=== PATIENT | male | born 1930 | race Caucasian/White ===

== ENCOUNTER → 2016-02-26 | Outpatient (CLI) | payer OTHER, BC ==
[~2016-02-26] MED LIST: IOPAMIDOL (ISOVUE 370) 100 ML BTL IV ONE
--- NOTE | 2016-03-03 17:18 | CT ---
CT Angiography of the Abdomen and Pelvis Clinical Indications: Continued evaluation of endoleak. Status post stent-graft placement for abdomin al aortic aneurysm in November 2014. Known type II endoleak. Comparison: June 25, 2015, December 29, 2014. Technique: Thinly collimated multidetector helical data were obtained through the abdomen and pelvis during the administration of 97 mL of Isovue 370 IV contrast during the arterial phase of contrast e nhancement. Repeat 5 mm images are obtained in venous phase. Images were then transferred to an Pixel[employer] workstation where multiplanar and three-dimensional reconstructions were performed by the rad iologist. Appropriate images were stored on PACS. Dose reduction techniques were utilized. Findings: CT Angiography: Indeed, a type II endoleak is still present, from a large right posterior lumbar ar mely. There may be a second point of entry from another lumbar artery up above. The aneurysm sac at t his point has enlarged, now measuring 5.4 x 5.5 cm compared to the previous 5.5 x 5.1 cm. It has been 1-1/2 years. The LAURA has been occluded and there is no endoleak anteriorly. All the leak is posterio r. The endograft otherwise is excellent in position. No migration. No limb kink. CT Abdomen and Pelvis: The arterial phase evaluation of the solid and visceral organs is normal. No developing mass or adenopathy. Lung bases are clear. Impression: 1. 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 These are posterolaterally located. 2. First time enlarging aneurysm sac size, now at 5.5 x 5.4 cm compared to the original 5.5 x 5.1 cm. Recommendation: CT and fluoroscopy-guided percutaneous endoleak embolization. I will discuss this with the patient at this time and schedule the patient for the above recommended procedures.
== END ==
LOC: FIMAGING 13:46
PROVIDERS: ATTEND Radiology Diagnostic Radiology
DX: Z09 Encounter for follow-up examination after completed treatment for conditions other than malignant neoplasm (principal); I71.4 Abdominal aortic aneurysm, without rupture; T82.9XXA Unspecified complication of cardiac and vascular prosthetic device, implant and graft, initial encounter
CPT/HCPCS: 74174; Q9967

== ENCOUNTER 2016-03-27 07:19 | Day surgery (SDC) | payer OTHER, BC ==
[2016-03-27] MEDS ORDERED: MIDAZOLAM 2 MG/2 ML VIAL ONE (07:31)
[2016-03-27] MEDS ORDERED: PROPOFOL/EMULSION 500 MG/50 ML BOTTLE IV ONE (07:31)
[2016-03-27] MEDS ORDERED: PROPOFOL 200 MG/20 ML VIAL ONE (07:31)
[2016-03-27] MEDS ORDERED: SUCCINYLCHOLINE CHLORIDE 200 MG/10 ML VIAL ONE (07:33)
[2016-03-27] MEDS ORDERED: ROCURONIUM 100 MG/10 ML VIAL ONE (07:34)
[2016-03-27 08:41] LABS: INR 1.15 (0.83-1.16); PROTIME(PATIENT) 14.7 SEC (12.0-15.0)
[2016-03-27 08:42] LABS: APTT 30.3 SEC (23.0-38.0)
[2016-03-27] MEDS ORDERED: NS 1,000 ML IV SCH (08:45)
[2016-03-27] MEDS ORDERED: fentaNYL 100 MCG/2 ML INJ ONE (09:14)
[2016-03-27] MEDS ORDERED: KETAMINE 100 MG/10 ML SYR IVP ONE (12:06)
[2016-03-27] MEDS ORDERED: IOPAMIDOL (ISOVUE-300) 100 ML BTL IV ONE (12:57)
[2016-03-27] MEDS ORDERED: HEPARIN 10,000 UNIT/10 ML MDV ONE (12:57)
[2016-03-27 13:08] LABS: HEMATOCRIT 36.2 % (40.0-51.0); HEMOGLOBIN 11.8 g/dL (13.7-17.5)
--- NOTE | 2016-03-27 16:45 | CT ---
CT-guided Percutaneous Sac Access Fluoroscopy-guided Sac Embolization Lumbar Artery Embolization Indication: Expanding sac size. A large lumbar artery is contributing to a large type II endoleak. Informed consent: Obtained from the patient. Risks and benefits were discussed. Cross Cutting Measure: Patient's current list of medications including all known prescriptions, over -the-counters, herbals, and vitamin/mineral/dietary supplements are reviewed. Medications' name, dos age, frequency, and route of administration are confirmed. The patient is a non-smoker. Prophylactic Antibiotic: Cefazolin was not ordered and administered for antimicrobial prophylaxis be cause it was not medically necessary. VTE Prophylaxis: There is not an order for VTE prophylaxis to be given within 24 hours of the proced ure end time. VTE prophylaxis was not given because it was not medically necessary. Technique: Patient is placed in supine position. A "timeout" procedure was performed to identify th e correct patient and the correct procedure. 1% Xylocaine was used for local anesthetic. All elemen ts of maximal sterile barrier technique including cap, mask, sterile gown, sterile gloves, large ster ile sheet, hand hygiene, and 2% chlorhexidine for cutaneous antisepsis, followed. Patient first is in CT gantry. Anterior abdominal grid is placed in the periumbilical region. Skin is marked. A 17-gauge, 13 cm Norberto-Cut needle is inserted into the aneurysm sac, with pulsatile flow retu rning. 0.035 wire is coiled in the aneurysm sac, and the needle was removed. The wire was then secure d externally with Tegaderm, and the patient then transferred upstairs to Interventional Radiology. Under biplane fluoroscopy, Kumpe catheter is advanced into the aneurysm sac, and then directed math and science division chair iorly. A sacogram was performed, showing large lumbar arteries, two specifically, one at L3, one at l ower half of L4. There is at least two vessels coming off of the lower one, if not 3, and a dominant vessel coming off of the upper one. They are each 3 to 4 mm in size. Attempts were made to first get into the upper arm without success. It was then directed towards the lower lumbar artery at L4. I was able to get the Kumpe catheter seated at the origin of it. Subsequen tly, Progreat microcatheter went into one of the branches, the right branch, with contrast injection confirming satisfactory placement of the catheter. Coil embolization was performed using Estella detacha ble coils. Next, the inferior branch is engaged, and coil embolization was performed using 3 mm Estella coils. Next, the left-sided branch was engaged, and embolization was performed. With this branch, the last c oil deployed is a 6 mm, 60 cm Estella coil, intentionally left going into the sac. The microcatheter was then directed superiorly. Multiple runs were performed to try to find the L3 anselmo mbar artery without success. Sacogram performed at this time shows that it is filled via a very small communicating branch between the 2 lumbar arteries. Therefore, I did not attempt any further access of this vessel. Three framing coils, 32 mm x 60 cm, were deployed in the posterior aneurysm sac. Next, attention is directed towards Boaz injection. A total of 4 vials of 24 Boaz was injected, inten tionally deployed posteriorly. There is sufficient sac coverage. Microcatheter was removed. Through multiple directional guidance, the Kumpe catheter did not aspirate out any further blood. Kumpe catheter was then removed. Patient tolerated the procedure well. Medication: Moderate sedation protocol provided by anesthesia team, Dr. Hardin. Impression: 1. CT guidance for sac access. 2. Multiple lumbar arteries and branches identified, with the L4 lumbar artery likely the inflow vess el, while the L3 lumbar artery the outflow vessel. 3. Coil embolization of the L4 lumbar inflow vessels. 4. Sac embolization with framing coils and Greg. Plan: Six-month CT angiogram follow up. Fluoroscopy: 70.7 minutes, 54 images.
--- NOTE | 2016-03-27 16:57 | IR ---
Please see report dictated under CT biopsy abdomen today.
--- NOTE | 2016-03-27 16:57 | IR ---
Please see report dictated under CT biopsy abdomen today.
[2016-03-28] MEDS ORDERED: IOPAMIDOL (ISOVUE-300) 100 ML BTL IV ONE (15:49)
== END 2016-03-27 14:15 | disposition home or self-care (01) ==
LOC: FIMAGING 07:19
PROVIDERS: ATTEND Radiology Diagnostic Radiology
PROC: 04LL3DZ Occlusion of Left Femoral Artery with Intraluminal Device, Percutaneous Approach (ICD-10-PCS; principal; 2016-03-27 12:39)
PROC: B4191ZZ Fluoroscopy of Lumbar Arteries using Low Osmolar Contrast (ICD-10-PCS; principal; 2016-03-27 12:39)
PROC: 04LK3DZ Occlusion of Right Femoral Artery with Intraluminal Device, Percutaneous Approach (ICD-10-PCS; principal; 2016-03-27 12:39)
DX: T82.330A Leakage of aortic (bifurcation) graft (replacement), initial encounter (principal); E03.9 Hypothyroidism, unspecified; I48.92 Unspecified atrial flutter; Z95.0 Presence of cardiac pacemaker
CPT/HCPCS: 37242; 75625; 75894; 77012; C1769; J0330; J1644; J2250; J2704; J3010; Q9967

== ENCOUNTER → 2016-04-11 | Day surgery (SDC) | payer OTHER, BC ==
[~2016-04-11] MED LIST changes: +1/2 NS 1,000 ML IV SCH; +ASPIRIN EC 325 MG TAB PO ONE; +ATROPINE SULFATE 1 MG/10 ML SYR IVP PRN; +DIAZEPAM 5 MG TAB ONE; +DIAZEPAM 5 MG TAB PO ONE; +FAMOTIDINE 20 MG TAB ONE; +FAMOTIDINE 20 MG TAB PO ONE; +HYDROCODONE/APAP 5/325 TAB PO PRN; -IOPAMIDOL (ISOVUE 370) 100 ML BTL IV ONE; +IOPAMIDOL (ISOVUE-370) 150 ML BTL IV ONE; +LIDOCAINE 1% 30 ML SDV ONE; +MIDAZOLAM 2 MG/2 ML VIAL ONE; +NITROGLYCERIN 0.4 MG BTL SL PRN; +NS 1,000 ML IV ONE; +ONDANSETRON 4 MG/2 ML VIAL IVP PRN; +OXYCODONE/APAP 5/325 TAB PO PRN; +PERFLUTREN LIPID MICROSPHERES 1.1 MG/ML VIAL IV ONE; +diphenhydrAMINE 25 MG CAP PO ONE; +fentaNYL 100 MCG/2 ML INJ ONE
--- NOTE | 2016-04-11 10:54 | CPEKG ---
Heart Rate: 79 RR Interval: 759 P-R Interval: 167 QRSD Interval: 150 QT Interval: 488 QTC Interval: 560 P [place]: 0 QRS [place]: -80 T Wave [place]: 92 EKG Severity - ABNORMAL ECG - EKG Impression: VENTRICULAR-PACED RHYTHM Electronically Signed By: Yo Pond 11-Apr-2016 13:07:56
[2016-04-11 11:15] LABS: % IMMATURE GRANULYOCYTES 0.9 % (0.0-1.1); ABSOLUTE IMMATURE GRANULOCYTES 0.07 10^3/uL (0.00-0.10); ADD DIFF? NO; ADD MORPH? NO; ADD SCAN? NO; ATYPICAL LYMPHOCYTE FLAG 0 (0-99); FRAGMENT RBC FLAG 0 (0-99); HEMATOCRIT 35.3 % (40.0-51.0); HEMOGLOBIN 11.7 g/dL (13.7-17.5); LEFT SHIFT FLG 0 (0-99); LIPEMIA HEMOLYSIS FLAG 80 (0-99); MEAN CELL HEMOGLOBIN 33.5 pg (27.9-34.1); MEAN CELL HEMOGLOBIN CONCENTR. 33.1 g/dL (32.4-36.7); MEAN CELL VOLUME 101.1 fL (81.5-99.8); MEAN PLATELET VOLUME 9.5 fL (8.7-11.7); PLATELET CLUMPS FLAG 0 (0-99); PLATELET COUNT 207 10^3/uL (150-400); RED BLOOD CELL COUNT 3.49 10^6/uL (4.40-6.38); RED CELL DISTRIBUTION WIDTH 13.2 % (11.5-15.2)
[2016-04-11 11:25] LABS: INR 1.1 (0.83-1.16); PROTIME(PATIENT) 14.1 SEC (12.0-15.0)
[2016-04-11 11:34] LABS: ANION GAP 10 mEq/L (8-16); CALCIUM 9.2 mg/dL (8.5-10.4); CARBON DIOXIDE 26 mEq/l (22-31); CHLORIDE 108 mEq/L (97-110); CHOLESTEROL 129 mg/dL (140-220); CHOLESTEROL/HDL RATIO 4.16 RATIO (1.00-4.97); CREATININE 1.5 mg/dL (0.7-1.3); GLOMERULAR FILTRATION RATE 44; GLUCOSE 95 mg/dL (70-100); HIGH DENSITY LIPOPROTEIN 31 mg/dL (40-65); LDL/HDL RATIO 2.58 RATIO (1.00-3.64); LOW DENSITY LIPOPROTEIN 80 mg/dL (80-100); MAGNESIUM 2.3 mg/dL (1.6-2.3); NON-HIGH DENSITY LIPOPROTEIN 98 mg/dL (90-129); POTASSIUM 4.5 mEq/L (3.5-5.2); SODIUM 144 mEq/L (134-144); TRIGLYCERIDE 94 mg/dL (40-150); VERY LOW DENSITY LIPOPROTEINS 18 mg/dL (8-25)
--- NOTE | 2016-04-11 13:08 | SUROPNOTE ---
[facility] Operative Report - Surgery Date of Procedure: 04/11/16 Indication: This patient is an 85 year old man, with known CAD s/p CABGx4, previous myocardial infarction, complete heart block, sick sinus syndrome s/p pacemaker placement, paroxysmal atrial fibrillation, and AAA s/p repair, presenting with 1.5 months of moderate dyspnea on exertion and exertional intolerance, [place] cardiovascular class III anginal equivalent. The patient has profound difficulty exerting himself. He was only able to walk for 2 minute and 48 seconds on standard Artur protocol. Nuclear myocardial perfusion imaging demonstrating a small, moderate intensity reversible defect involving the inferior apical wall, consistent with ischemia. Right/left heart catheterization will be performed secondary class III anginal equivalent and intermediate risk non-invasive testing. Procedures performed: 1. Right heart catheterization with selective coronary and bypass graft angiography. Description of procedure: Description, risks, benefits and alternatives were discussed in detail. Informed consent was obtained. The patient was brought to the catheterization laboratory where a timeout was performed. The right groin was sterilely prepped and draped. 2% lidocaine utilized for local anesthetic. A 7-Montenegrin hemostatic sheath was placed in the right femoral vein utilizing the modified Seldinger technique. A 7-Montenegrin PWP catheter was utilized for right heart catheterization. Following right heart catheterization, a 6-Montenegrin hemostatic sheath placed right femoral artery utilizing modified Seldinger technique. Diagnostic coronary and bypass graft angiography performed with 6-Montenegrin, Gerson left-4, Gerson right-4, AR1, and ANDUJAR catheter. All catheters were passed over a 0.035 guidewire. Pigtail catheter was then utilized for left heart catheterization, however would not cross the aortic valve. No left ventricular angiography was performed secondary to renal insufficiency and creatinine of 1.5. Angio Seal arteriotomy repair was then performed. Venous sheath was removed in the CVC Findings: 1. Hemodynamics: Right atrial pressure mean of 10. Right ventricular pressure 39/2/9 end-diastolic. Pulmonary artery pressure 38/11, mean of 24. Pulmonary capillary wedge pressure mean of 13 with no significant V wave. Aortic pressure 111/67, mean of 87. 2. Saturations: Main pulmonary artery 64.5%, Ao 91.5%. Assumed Sherice cardiac output 4.17 L/min with a cardiac index of 2.04 L/min/m2. 3. Coronary angiography: Left main: The left main is a moderate length bifurcating vessel with moderate calcification. Contains 50% mid and distal disease without obvious severe stenosis. 4. Left anterior descending: The left anterior descending is totally occluded in the mid vessel. The principle diagonal branch is totally occluded. The diagonal fills via a vein graft (see below). The apical LAD appears to be an extremely small, diffusely diseased vessel and has very faint filling via the left internal mammary graft. This is unchanged from previous catheterization in 2014. The proximal LAD contains an 80% stenosis and then gives rise to a diagonal, which is moderate, and a septal med spa manager, which appears to be bifurcating. This is where the LAD is then occluded. 5. Circumflex: This diomede vessel gives rise to a small to moderate high- lateral and is totally occluded. A significant marginal branch fills via patent graft (see below). 6. Right coronary: The right coronary is totally occluded proximally and fills via a bypass graft. Gives rise to a conus branch before being totally occluded. 7. Bypass graft angiography: There are a total of four bypass grafts. -The most inferior graft is to the right coronary. This graft has a proximal and ostial tubular stenosis of 40-50%. This graft anastomosis to the posterior descending and then retro fills the dominant right posterolateral. The graft has a mild to moderate proximal and mid body stenosis no greater than 40%, possibly 50% in the mid body. -The mid graft marker is to the principle diagonal branch; this is the smallest graft. The diagonal is relatively small and diffusely diseased. The graft has diffuse 30% luminal irregularities and 40-50% stenosis proximally. -The most superior graft marker is a large graft to the principle obtuse marginal branch. This obtuse marginal branch is large and bifurcating and has luminal irregularities. The graft itself has diffuse luminal irregularities and no critical lesions. -The final graft is the left internal mammary to the LAD. This graft is widely patent. However, the graft is small and fills a very small apical vessel. This is unchanged from previous. Overall Impression: 1. Mild pulmonary hypertension. 2. Severe diomede three-vessel coronary disease. 3. Patency of all bypass grafts with no significant disease progression compared to 2014. No critical lesions. Plan: 1. Follow up with Dr. Kingsley for further evaluation of dyspnea and exertional intolerance. 2. Consider pacemaker adjustment. 3. Definity echocardiogram. Portions of this report were documented by a certified medical transcriptionist. I have reviewed this report and agree with the documentation. Report scribed for Dr. Abdirahman Petit. Report scribed by Juliette Mott.
== END | disposition home or self-care (01) ==
LOC: FCATH 10:00
PROVIDERS: ATTEND Internal Medicine Interventional Cardiology
PROC: 4A023N6 Measurement of Cardiac Sampling and Pressure, Right Heart, Percutaneous Approach (ICD-10-PCS; principal; 2016-04-11)
PROC: B2111ZZ Fluoroscopy of Multiple Coronary Arteries using Low Osmolar Contrast (ICD-10-PCS; principal; 2016-04-11)
DX: I27.2 Other secondary pulmonary hypertension (principal); I25.10 Atherosclerotic heart disease of native coronary artery without angina pectoris; E78.5 Hyperlipidemia, unspecified; I73.9 Peripheral vascular disease, unspecified; Z95.1 Presence of aortocoronary bypass graft
CPT/HCPCS: 93005; 93457; C8924; J1644; J2250; J3010; Q9967

== ENCOUNTER → 2016-09-24 | Outpatient (CLI) | payer OTHER, BC ==
[~2016-09-24] MED LIST changes: -1/2 NS 1,000 ML IV SCH; -ASPIRIN EC 325 MG TAB PO ONE; -ATROPINE SULFATE 1 MG/10 ML SYR IVP PRN; -DIAZEPAM 5 MG TAB ONE; -DIAZEPAM 5 MG TAB PO ONE; -FAMOTIDINE 20 MG TAB ONE; -FAMOTIDINE 20 MG TAB PO ONE; -HYDROCODONE/APAP 5/325 TAB PO PRN; +IOPAMIDOL (ISOVUE 370) 100 ML BTL IV ONE; -IOPAMIDOL (ISOVUE-370) 150 ML BTL IV ONE; -LIDOCAINE 1% 30 ML SDV ONE; -MIDAZOLAM 2 MG/2 ML VIAL ONE; -NITROGLYCERIN 0.4 MG BTL SL PRN; -NS 1,000 ML IV ONE; -ONDANSETRON 4 MG/2 ML VIAL IVP PRN; -OXYCODONE/APAP 5/325 TAB PO PRN; -PERFLUTREN LIPID MICROSPHERES 1.1 MG/ML VIAL IV ONE; -diphenhydrAMINE 25 MG CAP PO ONE; -fentaNYL 100 MCG/2 ML INJ ONE
== END ==
LOC: FIMAGING 11:44
PROVIDERS: ATTEND Radiology Diagnostic Radiology
DX: Z09 Encounter for follow-up examination after completed treatment for conditions other than malignant neoplasm (principal); I71.4 Abdominal aortic aneurysm, without rupture; Z98.890 Other specified postprocedural states; Z95.828 Presence of other vascular implants and grafts
CPT/HCPCS: 74174; Q9967

== ENCOUNTER → 2017-07-29 | Outpatient (CLI) | payer OTHER, BC | LOC: BHFA 10:45 | PROVIDERS: ATTEND Internal Medicine | DX: I25.10 Atherosclerotic heart disease of native coronary artery without angina pectoris (principal); I48.91 Unspecified atrial fibrillation ==

== ENCOUNTER → 2017-09-01 | Outpatient (CLI) | payer OTHER, BC | LOC: BHFA 09:00 | PROVIDERS: ATTEND Internal Medicine Cardiovascular Disease | DX: I48.92 Unspecified atrial flutter (principal); I25.10 Atherosclerotic heart disease of native coronary artery without angina pectoris; I71.4 Abdominal aortic aneurysm, without rupture | CPT/HCPCS: 78452; 93017; A9500; J2785 ==

== ENCOUNTER 2017-12-02 11:16 | Observation (INO) | payer OTHER, BC ==
[2017-12-02] MEDS ORDERED: NS 1,000 ML IV ONE (11:18)
[2017-12-02] MEDS ORDERED: BACITRACIN IRRIGATION/NS 50,000 UNITS/1,000 ML BTL IRR ONE (11:18)
[2017-12-02] MEDS ORDERED: VANCOMYCIN PHARMACY TO DOSE MISC SCH (11:45)
[2017-12-02 11:56] LABS: PLATELET COUNT 143 10^3/uL (150-400)
[2017-12-02] MEDS ORDERED: VANCOMYCIN 1.25 GM in NS 250 ML IV ONE (12:00)
[2017-12-02 12:04] LABS: INR 1.15 (0.83-1.16); PROTIME(PATIENT) 14.9 SEC (12.0-15.0)
--- NOTE | 2017-12-02 12:42 | PDGENHP ---
History & Physical Chief Complaint: cardiomyopathy Relevant Physical Exam: s1s2 rrr cta ao3 Cardiorespiratory Assessment: for upgrade to biv pacemaker
[2017-12-02] MEDS ORDERED: LIDOCAINE 1% 300 MG/30 ML SDV ONE (12:55)
[2017-12-02] MEDS ORDERED: BUPIVACAINE 0.75% 10 ML SDV ONE (12:56)
[2017-12-02] MEDS ORDERED: IOPAMIDOL (ISOVUE-300) 100 ML BTL ONE (12:56)
[2017-12-02] MEDS ORDERED: ceFAZolin 2 GM/DEXTROSE 100 ML IV ONE (13:00)
--- NOTE | 2017-12-02 13:17 | PDANEPAE ---
ANE History of Present Illness here for upgrade to BIV PM ANE Past Medical History - Cardiovascular History Hx Hypertension: No Hx Arrhythmias: Yes Hx Chest Pain: Yes Hx Coronary Artery / Peripheral Vascular Disease: Yes Hx CHF / Valvular Disease: No Hx Palpitations: No Cardiovascular History Comment: Low heart rate -pacemaker. Afib-cardioversion. CABG for OR. Abd. aortic aneurysm. - Pulmonary History Hx COPD: No Hx Asthma/Reactive Airway Disease: No Hx Recent Upper Respiratory Infection: No Hx Oxygen in Use at Home: No Hx Sleep Apnea: No Pulmonary History Comment: Pt has been experiencing SOB over time but has increased recently with medication change of Plavix to Eliquis. - Neurologic History Hx Cerebrovascular Accident: No Hx Seizures: No Hx Dementia: No - Endocrine History Hx Diabetes: No Endocrine History Comment: Hypothyroid-med. - Renal History Hx Renal Disorders: Yes Renal History Comment: Prostate green light laser-BPH. Creat. has been running high. - Liver History Hx Hepatic Disorders: No - Neurological & Psychiatric Hx Hx Neurological and Psychiatric Disorders: No - Cancer History Hx Cancer: No - Congenital Disorder History Hx Congenital Disorders: No - GI History Hx Gastrointestinal Disorders: No - Other Health History Other Health History: Arthritis both knees. Several missing teeth. Bruise easily -due to PLavix, ASA. 03/25/16 pt off plavix and now on eliquis. - Chronic Pain History Chronic Pain: No - Surgical History Prior Surgeries: AAA stent graph 11/2014, 4 vessel CABG 1996. Green laser prostate. Pacemaker. Bilateral cataract. R eye macular surg. ANE Review of Systems Review of systems is: negative Review of Systems: - Pacemaker Date Pacemaker Last Checked: 01/2016 ANE Patient History - Allergies Allergies/Adverse Reactions: sulfamethoxazole Allergy (Unknown, Verified 05/19/11 13:02) amiodarone Allergy (Verified 03/27/16 11:16) Penicillins Allergy (Verified 07/29/13 13:22) Rash - Home Medications Home medications: home medication list seen and reviewed Home Medications: Levothyroxine [Synthroid 75 mcg (*)] 75 mcg PO DAILY06 07/24/11 [Last Taken 08:00] Apixaban [Eliquis] 2.5 mg PO BID 03/25/16 [Last Taken Unknown] Acetaminophen [Tylenol ES 500 mg (*)] 500 mg PO DAILY 11/30/17 [Last Taken Unknown] Aspirin [Aspirin 81mg (*)] 81 mg PO DAILY 11/30/17 [Last Taken Unknown] Metoprolol Tartrate [Lopressor 50 mg (*)] 50 mg PO BID 11/30/17 [Last Taken Unknown] Rosuvastatin Calcium [Crestor 20mg (*)] 20 mg PO HS 11/30/17 [Last Taken Unknown ] Zolpidem Tartrate [Ambien 5MG (*)] 5 mg PO HS PRN 11/30/17 [Last Taken Unknown] - NPO status NPO Status: no food or drink >8 hours - Smoking Hx Smoking Status: Never smoked - Family Anes Hx Family Hx Anesthesia Complications: none ANE Labs/Vital Signs - Labs Result Diagrams: 12/02/17 11:40 12/02/17 11:40 - Vital Signs Height: 178 cm Weight: 81.6 kg ANE Physical Exam - Airway Neck exam: FROM Mallampati Score: Class 1 - Pulmonary Pulmonary: no respiratory distress - Cardiovascular Cardiovascular: regular rate and rhythym - ASA Status ASA Status: III ANE Anesthesia Plan Anesthesia Plan: MAC
[2017-12-02] MEDS ORDERED: PROPOFOL/EMULSION 500 MG/50 ML BOTTLE IV ONE (13:26)
[2017-12-02] MEDS ORDERED: fentaNYL 100 MCG/2 ML INJ ONE (13:29)
[2017-12-02] MEDS ORDERED: PHENYLEPHRINE HCL 100 MCG/ML SYR ONE (14:32)
[2017-12-02] MEDS ORDERED: PROPOFOL 200 MG/20 ML VIAL ONE ×3 (15:11→16:21)
[2017-12-02] MEDS ORDERED: ZOLPIDEM TARTRATE 5 MG TAB PO PRN (16:54)
--- NOTE | 2017-12-02 17:04 | EPPROC ---
Electrophysiology Procedure Note: PROCEDURE PERFORMED: 1. Upgrade of A-V PM to A-BiV PM 2. Subclavian vein angiography 3. Fluoroscopy INDICATION: Existing A-V PM Complete AV block with no escape Cardiomyopathy PROCEDURE NOTE: Patient presented to the cardiac catheterization laboratory in a fasting, postabsorptive state. Dr. Dasilva administered sedation. The left infraclavicular area was prepped and draped in the usual sterile fashion. Lidocaine plus bupivacaine was used for local anesthesia. L subclavian venography was performed by injection of iodinated contrast into the L antecubital vein. This was done to assure patency of the vein . 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 Using a combination of blunt and sharp dissection and electrocautery, the dissection was carried down to the prepectoral fascia. The existing PM pocket was exposed. All bleeding was controlled with electrocautery. The pocket was packed with gauze soaked in antibiotic solution. Fluoroscopy was utilized during the entire procedure for venous access and placement of the leads. Using a direct stick technique the left extrathoracic axillary vein was accessed with 1 sticks using the modified Seldinger technique. Placement of the guide wire into the venous system was confirmed by low pressure blood return and also by visualizing the guide wire advancing into the inferior vena cava. A purse string suture was applied around the guide wire. A 9 Hebrew Whorley sheath was advanced over the guide wire into the subclavian vein after dilation of subclavian vein.. The coronary sinus ostium was engaged. Occlusion retrograde coronary sinus angiography was performed in 2 views. 135 degree subselector was used to engage the lateral vein and quadrapolar lead was advanced over wire distally into the vein. Subselector was slit. Pacing threshold, sensing and impedance was determined. There was no diaphragmatic stimulation at maximum output. The delivery system and the 9 Fr sheath were peeled away. Again, pacing threshold, sensing and impedance was determined. There was no diaphragmatic stimulation at maximum output. The CS lead was secured to the prepectoral fascia with 3nonabsorbablesutures. Pacing threshold and sensing parameters of the RA and RV leads were checked again. The gauze packing was removed from the pacemaker pocket. The pocket was again inspected for any bleeding. The leads were attached to the pacemaker securely. The pacemaker was inserted into the pocket and secured in place with a nonabsorbable suture. Fluoroscopy was performed in SHELL and UPPER SORBIAN planes to verify right sided placement of the RA and RV leads. Also fluoroscopy of the pacemaker pocket was performed. The pacemaker pocket was closed in 3 layers with absorbable monocryl sutures and evelia. Appropriate dressing was applied. The patient left the cardiac catheterization laboratory in stable condition. Serial Numbers: 1. Device Biotronik Edora 8HFT QP SN [id number] 2. Atrial Lead SJM 1488TC SN [id number] 3. Right Ventricular Lead Biotronik SX53/15 BP SN [id number] 4. Left Ventricular Lead Biotronik Sentus 75 SN [id number] Stimulation Thresholds & Impedance Measurements: 1. Atrial Lead P 1.3 mV Imp 351 ohm 2. Right Ventricular Lead 9.6 mV (paced) 0.4 V 0.4 ms 780 ohm 3. Left Ventricular Lead R 9.2 mV 1 V 0.4 ms 721 ohm Wilner Pacing Parameters: 1. Pacing mode VVI-CLS 2. Lower rate 70 ppm 3. Upper rate 130 ppm Patient Problems: Problems Problem Status Onset Pneumonia Active CAD - Coronary arteriosclerosis Active Atrial flutter Active Urinary tract infectious disease Active Bernabe hematuria Active Large prostate Active Pacemaker generator end of life Acute
--- NOTE | 2017-12-02 17:12 | POSTANESTH ---
Post Anesthetic Evaluation Cardiovascular Status: Normal, Stable Respiratory Status: Normal, Stable Level of Consciousness/Mental Status: Can Participate in Eval Pain Control: Adequate, Prn Tx Ordered Nausea/Vomiting Control: Adequate, Prn Tx Ordered Complications Possibly Related to Anesthesia: None Noted
[2017-12-02] MEDS: METOPROLOL TARTRATE 50 MG TAB PO SCH (20:10)
[2017-12-02] MEDS ORDERED: ROSUVASTATIN CALCIUM 20 MG TAB PO SCH (21:00)
[2017-12-03 04:00] LABS: PLATELET COUNT 115 10^3/uL (150-400)
[2017-12-03] MEDS ORDERED: LEVOTHYROXINE 75 MCG TAB PO SCH (06:00)
[2017-12-03 07:56] VITALS: BP 120/60
[2017-12-03] MEDS: ACETAMINOPHEN 500 MG TAB PO SCH ×2 (08:38→09:05)
[2017-12-03] MEDS: ASPIRIN 81 MG CHEWABLE TAB PO SCH ×2 (08:38→09:05)
[2017-12-03] MEDS: METOPROLOL TARTRATE 50 MG TAB PO SCH (08:39)
--- NOTE | 2017-12-03 12:18 | CPEKG ---
Test Reason : OPEN Blood Pressure : / mmHG Vent. Rate : 082 BPM Atrial Rate : 000 BPM P-R Int : 077 ms QRS Dur : 151 ms QT Int : 420 ms P-R-T Axes : 000 -88 084 degrees QTc Int : 491 ms Ventricular-paced complexes Confirmed by Monroe Hendrix ([id number]) on 12/03/2017 12:17:32 PM Referred By: Confirmed By:Monroe Hendrix
--- NOTE | 2017-12-03 12:19 | CPEKG ---
Test Reason : OPEN Blood Pressure : / mmHG Vent. Rate : 070 BPM Atrial Rate : 000 BPM P-R Int : 206 ms QRS Dur : 130 ms QT Int : 461 ms P-R-T Axes : 000 220 -14 degrees QTc Int : 498 ms Ventricular-paced rhythm Confirmed by Monroe Hendrix ([id number]) on 12/03/2017 12:19:15 PM Referred By: Confirmed By:Monroe Hendrix
--- NOTE | 2017-12-03 14:47 | GDS ---
DISCHARGE DIAGNOSES: 1. 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 2. Nonischemic cardiomyopathy with an ejection fraction of 40% with a normal nuclear stress test. 3. History of paroxysmal atrial fibrillation. 4. History of abdominal aortic aneurysm. 5. History of coronary artery disease with patent vein grafts and left internal mammary artery to le ft anterior descending based on cardiac catheterization from 2017. 6. Mild pulmonary hypertension. PROCEDURES: On 12/02/2017, upgrade to biventricular pacemaker with a Biotronik Edora device. BRIEF HISTORY: Please see dictated note from our office for complete details. In brief, the patient is an 87-year-old male who has been experiencing worsening exertional intolerance, fatigue, and dysp meri on exertion. He had had a cardiac catheterization a year previously, and a nuclear stress test r ecently that did not show any occlusive coronary disease. It was felt due to his pacing greater than 90% of the time he had developed a pacing mediated cardiomyopathy. He was therefore upgraded to a B i-V pacemaker in this admission. On day of discharge, patient denies any pectoral region pain. Ches t x-ray and pacer interrogation are within normal limits. PHYSICAL EXAM: VITAL SIGNS: On day of discharge, blood pressure 120/60, heart rate 72, respirations 18, O2 saturation of 98% on room air, temp of 98 degrees Fahrenheit. GENERAL: He is a very pleasan t elderly male in no apparent distress. HEENT: Normocephalic, atraumatic. Eyes are without scleral icterus. HEART: Regular rate and rhythm. LUNGS: Clear to auscultation. LABORATORY DATA: CBC was WBC 6.52, hemoglobin 10.4, hematocrit 32.3, platelet count of 115. BMP wit h sodium 140, potassium 4.6, chloride 108, CO2 26, BUN 32, creatinine 1.5, glucose of 113. RESULTS PENDING: None. DIET: Per previous. ACTIVITY: Left arm precautions were reviewed. DISCHARGE INSTRUCTIONS: 1. Arm precautions. 2. Follow up with Dr. Knowles as scheduled. /[id number]/MODL
--- NOTE | 2017-12-04 09:11 | CPEKG ---
Test Reason : OPEN Blood Pressure : / mmHG Vent. Rate : 079 BPM Atrial Rate : 000 BPM P-R Int : 000 ms QRS Dur : 158 ms QT Int : 453 ms P-R-T Axes : 000 247 079 degrees QTc Int : 520 ms Afib/flut and V-paced complexes Confirmed by Monroe Hendrix ([id number]) on 12/04/2017 9:10:58 AM Referred By: Confirmed By:Monroe Hendrix
== END 2017-12-03 10:55 | disposition home or self-care (01) ==
LOC: FCATH 11:16 → F2W 17:22
PROVIDERS: ADMIT Internal Medicine Cardiovascular Disease; ATTEND Internal Medicine Cardiovascular Disease
PROC: 0JH607Z Insertion of Cardiac Resynchronization Pacemaker Pulse Generator into Chest Subcutaneous Tissue and Fascia, Open Approach (ICD-10-PCS; principal; 2017-12-02)
PROC: 02HL3MZ Insertion of Cardiac Lead into Left Ventricle, Percutaneous Approach (ICD-10-PCS; principal; 2017-12-02)
PROC: 0JPT0PZ Removal of Cardiac Rhythm Related Device from Trunk Subcutaneous Tissue and Fascia, Open Approach (ICD-10-PCS; principal; 2017-12-02)
DX: I44.2 Atrioventricular block, complete (principal); I42.9 Cardiomyopathy, unspecified; I25.10 Atherosclerotic heart disease of native coronary artery without angina pectoris; I48.2 Chronic atrial fibrillation; E03.9 Hypothyroidism, unspecified; Z79.01 Long term (current) use of anticoagulants; Z79.82 Long term (current) use of aspirin
CPT/HCPCS: 33225; 33233; 33249; 71045; 71046; 93005; C1769; C1900; C2621; J0690; J2370; J2704; J3010; Q9967; J3370

== ENCOUNTER → 2018-02-22 | Outpatient (CLI) | payer OTHER, BC | LOC: BHFA 13:00 | PROVIDERS: ATTEND Internal Medicine Cardiovascular Disease | DX: I48.92 Unspecified atrial flutter (principal); Z95.0 Presence of cardiac pacemaker; R06.02 Shortness of breath | CPT/HCPCS: 93005-PO ==

== ENCOUNTER → 2018-03-01 | Outpatient (CLI) | payer OTHER, BC | LOC: BHFA 09:00 | PROVIDERS: ATTEND Internal Medicine Cardiovascular Disease | DX: I48.92 Unspecified atrial flutter (principal); I49.3 Ventricular premature depolarization ==

== ENCOUNTER → 2018-07-20 | Outpatient (CLI) | payer OTHER, BC | LOC: FIMAGING 14:14 ==